=== PATIENT | male | born 1990 | race Caucasian/White ===

== ENCOUNTER 2017-09-04 12:25 | Emergency (ER) | payer OTHER ==
[~2017-09-04] VITALS: Ht 182.9 cm; Wt 75.0 kg
[2017-09-04] MEDS ORDERED: IPRATROPIUM 0.5MG/ALBUTEROL 2.5MG INH SOL UD 3ML (DUONEB)(J7620) NEB ONE (15:15)
[2017-09-04] MEDS ORDERED: methylPREDNISolone INJ 125 MG/2 ML VIAL (J2930) IM ONE (15:15)
--- NOTE | 2017-09-04 16:19 | REP ---
CHEST, TWO VIEWS: COMPARISON: None. There is no evidence of acute infiltrate. No pleural effusion is seen. The heart is normal in size. The mediastinal silhouette is unremarkable. The visualized osseous structures are intact. IMPRESSION: No acute pulmonary disease. Signed by Ari Merritt MD 09/05/2017 07:14 P
[2017-09-04 16:34] VITALS: BP 119/65
[2017-09-04] MEDS ORDERED: TESS100C PO (16:40)
[2017-09-04] MEDS ORDERED: PRED20TA PO (16:40)
[2017-09-04] MEDS ORDERED: ALBU17IN INH (16:40)
== END 2017-09-04 16:48 | disposition home or self-care (01) ==
LOC: M ED 12:25
DX: J45.901 Unspecified asthma with (acute) exacerbation (principal); Z88.2 Allergy status to sulfonamides
CPT/HCPCS: 71020; 94640; 96372; 99282; J2930